=== PATIENT | male | born 1975 | race Caucasian/White ===

== ENCOUNTER 2018-09-26 09:29 | Emergency (ER) | payer MEDICARE ==
[2018-09-26 09:46] VITALS: BP 124/83
[2018-09-26] MEDS ORDERED: ACETAMINOPHEN 325 MG TABLET PO ONE (10:07)
[2018-09-26] MEDS ORDERED: KETOROLAC TROMETHAMINE 60 MG/2 ML SDV IM ONE (10:07)
--- NOTE | 2018-09-26 10:07 | ER Document Report ---
ED Dizziness/Weakness - General Chief Complaint: Dizziness Stated Complaint: DIZZINESS Time Seen by Provider: 09/26/18 10:04 Mode of Arrival: Ambulatory Information source: Patient Notes: History of Present Illness Chief Complaint: [headache] [ ] History obtained from [patient] 43 years old male with a history of Lyme disease with balance problems due to the disease, had 2 episodes of head injury just prior to arrival. Each time he lost his balance and hit the once door the other time old. Did not fall down. Currently have a headache global. No focal weakness numbness tingling sensation. Other than the underlying Lyme disease. Denies any neck pain neck stiffness. Denies any blurring of vision. Symptoms began: [today] Onset: [gradual] Timing: [constant] Quality: ["pain"] No different than prior severe headaches Intensity: [severe, but not worst ever] Location: [frontal] Aggravating factors: [none] Relieving factors: [none] Denies neck pain or stiffness Denies rash Denies visual loss or eye pain. Denies tick bite Denies head injury Denies weakness, numbness, incontinence, seizure, LOC Review of systems : All other systems negative as reviewed. CONSTITUTIONAL No fever. EYES No eye pain. ENT No URI symptoms, No sore throat, No ear pain. CARDIOVASCULAR No chest pain, No palpitations, No edema. RESPIRATORY No Cough, No SOB, No wheezing. GASTROINTESTINAL No abdominal pain, No nausea, No vomiting, No diarrhea, No constipation, No melena, No rectal bleeding. GENITOURINARY No UTI symptoms. MUSCULOSKELETAL No back pain. SKIN No Rash. NEUROLOGIC No paralysis, No parathesias. ENDOCRINE No polyuria. HEMO/LYMPATIC Patient does not bruise easily. PSYCHIATRIC No depression. Physical Exam CONSTITUTIONAL Vital signs reviewed, Comfortable, Alert and oriented X 3. HEAD Atraumatic, Normal cephalic. EYES No discharge from eye, Sclera are not injected, Extraocular muscles intact, Conjunctiva are normal.perrl,2mm, no photophobia, no nystagmus, fundi wnl. ENT Ears normal to inspection, Nose examination normal, Oropharynx normal, Mucous membranes pink, moist, normal in color. NECK Normal inspection, supple, Normal ROM, No jugular venous distention, No meningeal signs, no carotid bruit or tenderness. RESPIRATORY/CHEST Chest is non-tender, Breath sounds normal, No respiratory distress. CARDIOVASCULAR RRR, Heart sounds normal. ABDOMEN Abdomen is non-tender, No masses, Bowel sounds normal, No distension, No peritoneal signs. BACK Normal inspection. UPPER EXTREMITY Inspection normal, No cyanosis/clubbing/edema. LOWER EXTREMITY Inspection normal, No cyanosis/clubbing/edema, No calf tenderness. NEURO cn intact, no astreixis, no pronator drift, finger to nose testing coordinated bilaterally, 1+ deep tendon reflexes x 4 ext, down going babinski bilaterally , normal speech, Motor exam normal, Sensory exam normal. SKIN Skin is warm and dry, No rash. LYMPHATIC No adenopathy in neck. PSYCHIATRIC Normal affect. TRAVEL OUTSIDE OF THE [place] IN LAST 30 DAYS: No - HPI Notes: Dictated - Related Data Allergies/Adverse Reactions: promethazine [From Phenergan] Allergy (Verified 09/26/18 09:32) sumatriptan [From Imitrex] Allergy (Verified 09/26/18 09:32) Past Medical History - Social History Smoking Status: Never Smoker Cigarette use (# per day): No Frequency of alcohol use: None Drug Abuse: None Lives with: Family Family History: Reviewed & Not Pertinent Review of Systems - Review of Systems Notes: Dictated Physical Exam - Vital signs Vitals: Temp Pulse Resp BP Pulse Ox 98.2 F 77 16 124/83 100 09/26/18 09:41 09/26/18 09:41 09/26/18 09:41 09/26/18 09:41 09/26/18 09:41 - Notes Notes: Dictated Course - Re-evaluation Re-evalutation: 09/26/18 10:42 CT was reported by radiologist as negative for any intracranial bleeding - Vital Signs Vital signs: Temp Pulse Resp BP Pulse Ox 98.2 F 77 16 124/83 100 09/26/18 09:41 09/26/18 09:41 09/26/18 09:41 09/26/18 09:41 09/26/18 09:41 - Diagnostic Test Radiology reviewed: Reports reviewed - Negative CT of the head Discharge - Discharge Clinical Impression: Head injury Qualifiers: Encounter type: initial encounter Qualified Code(s): S09.90XA - Unspecified injury of head, initial encounter Headache Qualifiers: Headache type: other headache syndrome Qualified Code(s): G44.89 - Other headache syndrome Condition: Fair Disposition: HOME, SELF-CARE Instructions: Headache ([facility]) Prescriptions: Naproxen 500 mg PO BID #30 tablet
--- NOTE | 2018-09-26 10:38 | RADIOLOGY REPORT (SQ) ---
EXAM DESCRIPTION: CT HEAD WITHOUT COMPLETED DATE/TIME: 09/26/2018 10:30 am REASON FOR STUDY: Head injury COMPARISON: None. TECHNIQUE: Axial images acquired through the brain without intravenous contrast. Images reviewed wi th bone, brain and subdural windows. Additional sagittal and coronal reconstructions were generated. Images stored on PACS. All CT scanners at this facility use dose modulation, iterative reconstruction, and/or weight based d osing when appropriate to reduce radiation dose to as low as reasonably achievable (ALARA). [facility]: Dose Right [facility]: CareDose [facility]: Dose Right [facility]: Teradose 4D [facility]: [employer] RADIATION DOSE: CT Rad equipment meets quality standard of care and radiation dose reduction techniq ues were employed. CTDIvol: 53.2 mGy. DLP: 1070 mGy-cm. mGy. LIMITATIONS: None. FINDINGS: VENTRICLES: Normal size and contour. CEREBRUM: No masses. No hemorrhage. No midline shift. No evidence for acute infarction. Normal gra y/white matter differentiation. No areas of low density in the white matter. CEREBELLUM: No masses. No hemorrhage. No alteration of density. No evidence for acute infarction. EXTRAAXIAL SPACES: No fluid collections. No masses. ORBITS AND GLOBE: No intra- or extraconal masses. Normal contour of globe without masses. CALVARIUM: No fracture. PARANASAL SINUSES: No fluid or mucosal thickening. SOFT TISSUES: No mass or hematoma. OTHER: No other significant finding. IMPRESSION: NORMAL BRAIN CT WITHOUT CONTRAST. EVIDENCE OF ACUTE STROKE: NO. COMMENT: Quality ID # [id number]: Final reports with documentation of one or more dose reduction techniques (e.g., Automated exposure control, adjustment of the mA and/or kV according to patient size, use of iterative reconstruction technique) TECHNICAL DOCUMENTATION: JOB ID: [id number] [employer]- All Rights Reserved Reading location - IP/workstation name: [email or web address]
== END 2018-09-26 11:06 | disposition home or self-care (01) ==
LOC: ER 09:29
DX: S09.90XA Unspecified injury of head, initial encounter (principal); X58.XXXA Exposure to other specified factors, initial encounter; R42 Dizziness and giddiness; G44.89 Other headache syndrome; Z88.8 Allergy status to other drugs, medicaments and biological substances; Z88.6 Allergy status to analgesic agent
CPT/HCPCS: 99284; 96372; 70450; A9270; J1885

== ENCOUNTER → 2020-06-26 | Outpatient (CLI) | payer MEDICARE, MEDICAID ==
--- NOTE | 2020-06-26 15:14 | RADIOLOGY REPORT (SQ) ---
EXAM DESCRIPTION: VENOUS UNILATERAL LOWER IMAGES COMPLETED DATE/TIME: 06/26/2020 2:40 pm REASON FOR STUDY: RLE PAIN M79.604 PAIN IN RIGHT LEG COMPARISON: None. TECHNIQUE: Dynamic and static pendleton scale and color images acquired of the right leg venous system. S elected spectral images acquired with additional compression and augmentation maneuvers. The contrala teral common femoral vein and saphenofemoral junction were also imaged. Images stored on PACS. LIMITATIONS: None. FINDINGS: COMMON FEMORAL: Normal phasicity, compression and augmentation. No visualized echogenic ma terial on pendleton scale. No defects on color images. FEMORAL: Normal compression and augmentation. No visualized echogenic material on pendleton scale. No defe cts on color images. POPLITEAL: Normal compression, augmentation. No visualized echogenic material on pendleton scale. No defec ts on color images. CALF VESSELS: Normal compression, augmentation. No visualized echogenic material on pendleton scale. No de fects on color images. GSV and SSV: Normal compression, augmentation. No visualized echogenic material on pendleton scale. No def ects on color images. ANY DEEP VENOUS INSUFFICIENCY: No. ANY EVIDENCE OF POPLITEAL CYST: No. OTHER: No other finding. CONTRALATERAL COMMON FEMORAL VEIN: Normal phasicity, compression and augmentation. No visualized echogenic material on pendleton scale. No de fects on color images. IMPRESSION: NO EVIDENCE OF DVT OR SVT IN THE RIGHT LEG. TECHNICAL DOCUMENTATION: JOB ID: [id number] 2010 [employer]- All Rights Reserved Reading location - IP/workstation name: [email or web address]
== END ==
LOC: SP 12:48
PROVIDERS: ATTEND Physician Assistant
DX: M79.604 Pain in right leg (principal)
CPT/HCPCS: 93971

== ENCOUNTER → 2020-06-26 | Outpatient (CLI) | payer MEDICARE, MEDICAID ==
[2020-06-26 15:27] LABS: ALBUMIN 5.1 g/dL (3.5-5.0); ALKALINE PHOSPHATASE 127 U/L (38-126); ANION GAP 10 (5-19); ASPARTATE AMINO TRANSFERASE 31 U/L (17-59); BILIRUBIN,DIRECT 0.3 mg/dL (0.0-0.4); BILIRUBIN,TOTAL 1.9 mg/dL (0.2-1.3); BLOOD UREA NITROGEN 11 mg/dL (7-20); CALCIUM 9.6 mg/dL (8.4-10.2); CARBON DIOXIDE 29 mmol/L (22-30); CHLORIDE 100 mmol/L (98-107); CREATINE KINASE 147 U/L (55-170); GLUCOSE 88 mg/dL (75-110); TOTAL PROTEIN 8.5 g/dL (6.3-8.2)
[2020-06-26 15:28] LABS: C-REACTIVE PROTEIN < 5.0 mg/L (<10.0)
[2020-06-26 15:29] LABS: ABSOLUTE BASOPHILS # (AUTO) 0.1 10^3/uL (0.0-0.2); ABSOLUTE EOSINOPHILS # (AUTO) 0.1 10^3/uL (0.0-0.6); ABSOLUTE LYMPHOCYTES (AUTO) 1.2 10^3/uL (0.5-4.7); ABSOLUTE MONOCYTES (AUTO) 0.3 10^3/uL (0.1-1.4); ABSOLUTE NEUT (AUTO) 4.3 10^3/uL (1.7-8.2); BASOPHILS % (AUTO) 1.1 % (0-2); EOSINOPHILS % (AUTO) 1.1 % (0-6); HEMATOCRIT 44.1 % (37.9-51.0); HEMOGLOBIN 15.4 g/dL (13.5-17.0); LYMPHOCYTES % (AUTO) 20.5 % (13-45); MEAN CORPUSCULAR HEMOGLOBIN 29.3 pg (27.0-33.4); MEAN CORPUSCULAR HGB CONC 34.9 g/dL (32.0-36.0); MEAN CORPUSCULAR VOLUME 84 fl (80-97); MONOCYTES % (AUTO) 5.4 % (3-13); PLATELET COUNT 197 10^3/uL (150-450); RED BLOOD COUNT 5.27 10^6/uL (4.35-5.55); RED CELL DISTRIBUTION WIDTH 12.9 % (11.5-14.0); SEGMENTED NEUTROPHILS % (AUTO) 71.9 % (42-78); TOTAL CELLS COUNTED % (AUTO) 100 %; WHITE BLOOD COUNT 5.9 10^3/uL (4.0-10.5)
[2020-06-26 15:48] LABS: ERYTHROCYTE SEDIMENTATION RATE 16 mm/hr (0-15)
== END ==
LOC: OD 14:26
PROVIDERS: ATTEND Physician Assistant
DX: M79.10 Myalgia, unspecified site (principal); R23.3 Spontaneous ecchymoses
CPT/HCPCS: 36415; 80053; 82550; 85025; 85652; 86140

== ENCOUNTER 2020-06-30 07:33 | Day surgery (SDC) | payer MEDICARE, MEDICAID ==
[2020-06-30] MEDS ORDERED: PROPOFOL INJ 200 MG/20 ML VIAL IV ONE (07:48)
--- NOTE | 2020-06-30 09:38 | Operative Report ---
Operative Report DATE OF SURGERY: 06/30/20 Operative Report: The risks benefits and alternatives of the procedure explained to the patient in detail and informed consent is obtained.A GIF Olympus video scope was inserted into the patient's mouth and hypopharynx, the esophagus is identified intubated and insufflated, the scope was then advanced through the esophagus stomach and duodenum ,retroflexion maneuver is done ,the esophagus stomach and first and second portions of the duodenum examined PREOPERATIVE DIAGNOSIS: Dysphagia POSTOPERATIVE DIAGNOSIS: Esophagitis with possible Schatzki's ring that is broken. Gastritis status post biopsy OPERATION: EGD with biopsy SURGEON: DANIELE DOMINGUEZ ANESTHESIA: LMAC TISSUE REMOVED OR ALTERED: As noted above COMPLICATIONS: None. ESTIMATED BLOOD LOSS: None. INTRAOPERATIVE FINDINGS: As noted above. PROCEDURE: Patient tolerated procedure well. No immediate postprocedure complications are noted. Patient is discharged in good condition. Discharge date 06/30/2020. Discharge diet: Regular. Discharge activity: Regular. 2 to 3-week follow-up to discuss findings. Patient is instructed call the office or proceed to the emergency room should there be any further problems or questions. Wait on the pathology.
[2020-06-30 10:19] VITALS: BP 111/77
== END 2020-06-30 10:10 | disposition home or self-care (01) ==
LOC: END 07:33
PROVIDERS: ATTEND Internal Medicine Gastroenterology
DX: K29.50 Unspecified chronic gastritis without bleeding (principal); K21.0 Gastro-esophageal reflux disease with esophagitis; I10 Essential (primary) hypertension; E78.5 Hyperlipidemia, unspecified; Z79.899 Other long term (current) drug therapy; Z03.818 Encounter for observation for suspected exposure to other biological agents ruled out
CPT/HCPCS: 43239; 88342 ×2; 88305 ×2; 00731; U0003; J2704; C9803; 731; 87635